=== PATIENT | male | born 1950 | race Caucasian/White ===

== ENCOUNTER → 2023-08-14 | Outpatient (CLI) | payer MEDICARE ==
[2023-08-14 10:06] LABS: Partial Thromboplastin Time 26.9 sec (22.0-30.0)
[2023-08-14 15:11] LABS: HCT 44.7 % (39.6-50.0); HGB 14.4 g/dL (13.0-17.0); MCH 28.3 pg (27.0-32.0); MCHC 32.2 g/dL (32.0-37.0); Mean Platelet Volume 10.2 FL (9.5-12.2); NRBC Per 100 WBC 0 X 10*3/uL (0.00-0.01); Platelet Count 253 X 10*3/uL (140-440); RBC 5.08 X 10*6/uL (4.40-5.60); RDW 14.7 % (11.5-14.5); WBC 9.24 X 10*3/uL (4.50-10.00)
[2023-08-14 15:23] LABS: ALT 15 U/L (10-49); AST 15 U/L (14-35); Albumin 4.1 g/dL (3.8-4.9); Albumin/Globulin Ratio 1.64 Ratio (1.60-3.17); Alkaline Phosphatase 58 U/L (41-126); Blood Urea Nitrogen 11.2 mg/dL (9.0-27.0); Calcium 9.6 mg/dL (8.7-10.3); Carbon Dioxide 27.9 mmol/L (21.6-31.8); Chloride 102 mmol/L (96-109); Globulin 2.5 g/dL (1.6-3.3); Glucose 148 mg/dL (70-110); Sodium 141 mmol/L (135-145); Total Bilirubin 0.6 mg/dL (0.3-1.2); Total Protein 6.6 g/dL (6.2-8.2)
[2023-08-14 16:01] LABS: Appearance,Urine Clear (Clear); Bilirubin,Urine Negative (Negative); Blood,Urine Negative (Negative); Color,Urine Yellow (Yellow); Ketones,Urine Negative (Negative); Nitrite,Urine Negative (Negative); PH, Urine 6.5; Specific Gravity,Urine 1.017 (1.001-1.030)
[2023-08-14 16:20] LABS: Bacteria,Urine None Seen (None Seen)
[2023-08-15 08:53] LABS: Prothrombin Time 10.9 sec (10.0-12.5)
== END | disposition home or self-care (01) ==
LOC: LABPAT 08:16
PROVIDERS: ATTEND Orthopaedic Surgery
DX: Z01.818 Encounter for other preprocedural examination (principal); I49.8 Other specified cardiac arrhythmias; M16.11 Unilateral primary osteoarthritis, right hip; R94.31 Abnormal electrocardiogram [ECG] [EKG]
CPT/HCPCS: 80053; 81001; 85027; 85610; 85730; 86850; 86900; 86901; 87070; 93005

== ENCOUNTER 2023-08-25 05:34 | Inpatient (IN) | payer MEDICARE ==
[2023-08-19 16:50] VITALS: BMI 44.7
[~2023-08-25 05:34] MED LIST: ACETAMINOPHEN TAB 500 MG TAB PO PRN; GABAPENTIN 300 MG CAP PO PRN; MELOXICAM 7.5 MG TAB PO PRN; TRANEXAMIC 1,000 MG/100ML-NACL 1,000 MG in SALINE 1 100ML.BAG IVPB PRN; ceFAZolin 3 GM in SODIUM CHLORIDE 0.9% 100 ML IVPB PRN
[2023-08-25] MEDS ORDERED: ONDANSETRON 4 MG/2 ML VIAL IVP ONE ×2 (05:46→10:03)
[2023-08-25 06:30] LABS: Glucose,Whole Blood 154 mg/dL (70-110)
[2023-08-25] MEDS ORDERED: DEXAMETHASONE SOD PHOSPHATE 4 MG/ML 1 ML VIAL IVP ONE (06:46)
[2023-08-25] MEDS ORDERED: MIDAZOLAM 2 MG/2 ML VIAL IVP ONE (06:48)
[2023-08-25] MEDS: LACTATED RINGERS 1,000 ML IV SCH (06:50)
[2023-08-25] MEDS ORDERED: HYDROmorphone 0.5 MG/0.5 ML SYRINGE IVP PRN ×4 (07:00→09:20)
[2023-08-25] MEDS ORDERED: ceFAZolin 1,000 MG in SODIUM CHLORIDE 0.9% 1,000 ML IRRIGATION ONE (07:00)
[2023-08-25] MEDS ORDERED: ROPIVACAINE 5 MG/ML 30 ML VIAL MISCELLANE ONE ×2 (07:36→08:35)
--- NOTE | 2023-08-25 08:47 | P.OP ---
Date of Procedure: 08/25/23 Preoperative Diagnosis: Severe osteoarthritis right hip Postoperative Diagnosis: Severe osteoarthritis right hip Procedure(s) Performed: Right total hip arthroplasty with a direct anterior approach Implants: [employer] Polarstem standard size 7 [employer] R3, 3 hole hemispherical acetabular shell, 56 mm [employer] Reflection 6.5 mm cancellus screw, 20 mm, 25 mm [employer] R3, XLPE 20 acetabular liner [employer] Oxinium femoral head 36 mm, +8 All components were press-fit. The articulation is Oxinium on polyethylene. Anesthesia: spinal Surgeon: Vladimir Todd Hotel Sales Manager #1: Gladis Gould Estimated Blood Loss (ml): 1,500 Pathology: none sent Condition: stable Disposition: PACU Indications for Procedure: After failure of conservative treatment we discussed the surgical and nonsurgical treatment options at length. Patient wishes to proceed with a total hip arthroplasty with a direct anterior approach. Complications specific to this procedure were discussed at length, including but not limited to infection, leg length discrepancy, dislocation, nerve injury, and fracture. Covid-19 was also discussed at length with the patient, and they are aware of the current policies and procedures. The patient was given the option of delaying surgery, but they elect to proceed knowing these risks. Patient is aware of all these complications and informed consent was obtained Operative Findings: The operative findings are consistent with severe osteoarthritis of the right hip Description of Procedure: The patient was seen and evaluated in the preoperative area and the consent was reviewed. The operative site was marked with a skin marker. The patient verified the procedure and operative site. A ALVERTO block was placed by [facility] in the preoperative area. The patient was then brought to the operating room and given preoperative antibiotics intravenously. 1 g of Tranexamic acid was also given intravenously. A spinal anesthetic was administered by the anesthesia department. The patient was then placed on the [place] table with the bony prominences well-padded. The hip area was then prepped with a ChloraPrep solution and draped in the usual sterile fashion. A universal timeout was then performed, which confirmed the patient's name, surgical site, ALLERGIES, and procedure being performed on the consent. Next the incision site was located at 1 cm distal and 4 cm lateral to the anterior superior iliac spine. The skin and subcutaneous tissues were sharply incised. Incision was carefully dissected down to the fascia overlying the tensor fascia eva muscle. This fascia was then incised in line with the muscle fibers. Care was taken to stay laterally in order to avoid injuring the lateral femoral cutaneous nerve. Next, using blunt finger dissection, the tensor fascia eva muscle was dissected off its investing fascia. The muscle was then carefully retracted laterally with a cobra retractor over the lateral neck of the femur. Next, the circumflex vessels were identified and cauterized using the Aquamantis device. The anterior hip capsule was then exposed. The capsule was then opened and an inverted T fashion. The retractors were then placed intracapsularly. The retractors were maintained intracapsular throughout the procedure. The proximal femur was then visualized. Fluoroscopic x-rays were then taken in order to evaluate the preoperative leg lengths. A small amount of traction was placed on the leg. The femoral neck was then osteotomized at the appropriate level above the lesser trochanter. A small wedge of bone was then removed from the remaining femoral head. Next, using a corkscrew the femoral head was removed from the acetabulum. On gross visual inspection, the femoral head had complete loss of articular cartilage and multiple periarticular osteophytes. The femoral head was then measured. Attention was then turned to the acetabulum. The acetabulum was exposed and any remaining labrum was excised. Sequential reaming of the acetabulum was performed using fluoroscopic guidance until there was a good bed of bleeding cancellus bone. When the appropriate size was reached, a trial was then placed. The position and fit of the trial was checked with fluoroscopy. The trial was then removed. Then, using fluoroscopic guidance, the final implant was impacted at 20 of anteversion and 40 of abduction, and fully seated in the acetabulum. 2 screws were then placed in the acetabulum. Again fluoroscopy was used to check position of the screws. Next, the liner was then impacted, with a 20 elevated liner located in the anterior superior quadrant. Component locking was confirmed. Attention was then directed to the femur. With the aid of the [place] table, the femur was externally rotated to approximately 130, extended, and adducted under the opposite leg. A side hook was then placed under the proximal femur, and the side hook elevator was used to elevate the proximal femur while releasing the capsule. Retractors were then placed. A capsular release was performed, as well as a release of the conjoined tendon, which afforded excellent visualiza tion of the proximal femur. Next, a box osteotome was used to lateralize the proximal femur. A shaper machine hand was then used to locate the femoral canal. Sequential broaching was then performed with appropriate size which afforded excellent fixation in the proximal femur. A trial was then placed with appropriate head and neck, and the hip was gently reduced with the aid of the [place] table. Fluoroscopy was then used to check position of the components, as well as to evaluate the leg lengths and offset. The leg lengths and offset were measured as closely as possible to ensure stability of the hip. The hip was then gently dislocated and the trials were then removed. Final implants were then impacted and the hip was again reduced. Final fluoroscopic x-rays confirmed that the components were in anatomic position. The leg lengths and offset were measured and were found to coincide with the trial measurements. The hip was also taken through range of motion, and found to be stable. The hip was then copiously irrigated with antibiotic solution with pulsatile lavage. The hip was then irrigated with Irrisept solution. The soft tissues were then injected with a ropivacaine solution. A second dose of 1 g of Tranexamic acid was also given intravenously. The fascia was then closed with 2-0 strata fix suture. The subcutaneous tissue was closed with 3-0 Vicryl. The subcuticular tissue was closed with 3-0 strata fix suture. The skin was then closed with Exofin skin glue. After the glue and dried, and Optifoam silver impregnated dressing was applied. The patient was then transferred to the recovery room in stable condition. The household personal assistant DANG Mcintosh was required due to the complexity of surgery, and the need for skilled blood donor unit assistant for positioning, draping, exposure, retraction, and closure of the wound.
[2023-08-25] MEDS ORDERED: PROPOFOL 10 MG/ML 20 ML VIAL IV ONE (08:55)
[2023-08-25] MEDS ORDERED: MIDAZOLAM 2 MG/2 ML VIAL ONE (08:55)
[2023-08-25] MEDS ORDERED: PHENYLEPHRINE-0.9% NACL SYG 1,000 MCG/10 ML SYRINGE ONE (08:55)
[2023-08-25] MEDS ORDERED: fentaNYL (PF) 50 MCG/ML 2 ML AMP ONE (08:55)
[2023-08-25] MEDS ORDERED: TRANEXAMIC 1,000 MG/100ML-NACL PREMIX BAG ONE (08:55)
[2023-08-25] MEDS ORDERED: ALBUMIN HUMAN 5% (12.5gm) 250 ML BOTTLE IVPB ONE (08:55)
[2023-08-25] MEDS ORDERED: LACTATED RINGERS 1,000 ML IV ONE (09:08)
[2023-08-25] MEDS ORDERED: MAGNESIUM HYDROXIDE 2,400 MG/30 ML CUP PO PRN (09:20)
[2023-08-25] MEDS ORDERED: NALOXONE 0.4 MG/ML 1 ML VIAL IV PRN (09:20)
[2023-08-25] MEDS ORDERED: ONDANSETRON 4 MG/2 ML VIAL IVP PRN (09:20)
[2023-08-25 09:53] LABS: HCT 34.1 % (39.0-53.0); HGB 11.8 gm/dL (13.0-17.5); MCH 30.7 pg (25.0-35.0); MCHC 34.6 g/dL (31.0-37.0); MCV 88.6 fL (80.0-100.0); Mean Platelet Volume 8.3; Platelet Count 214 k/uL (150-450); RBC 3.85 m/uL (4.30-5.90); RDW 14.9 % (11.5-15.5); WBC 11.9 k/uL (3.8-10.6)
[2023-08-25 10:08] LABS: Glucose,Whole Blood 190 mg/dL (70-110)
--- NOTE | 2023-08-25 10:08 | XR ---
EXAMINATION TYPE: XR Hip Limited RT DATE OF EXAM: 08/25/2023 Comparison: None Clinical History: 72-year-old male postsurgical anterior right hip replacement, PACU now Findings: Image shows placement of right hip total arthroplasty. The acetabular cup and femoral stem components of the prosthesis appear well seated. No obvious periprosthetic fractures seen. Alignment grossly an atomic. Soft tissue air related to recent operation. Impression: Uncomplicated postoperative appearance right hip total arthroplasty.
[2023-08-25] MEDS: SODIUM CHLORIDE 0.9% 1,000 ML IV SCH ×3 (10:22→23:12)
--- NOTE | 2023-08-25 10:57 | P.ANPRN ---
Procedure Note - Anesthesia - Nerve Block Performed Right Patrick Single Time Out Performed: Yes ([id number]) Date of Procedure: 08/25/23 Procedure Start Time: 06:48 Procedure Stop Time: 06:55 Location of Patient: PreOp Indication: Acute Post-Operative Pain, Requested by Surgeon Specifically requested for management of pain by DrLe: Vladimir Todd Sedation Type: Sedate with meaningful contact maintained Preparation: Sterile Prep Position: Supine Catheter: None Needle Types: Pajunk Needle Gauge: 21 Ultrasound used to visualize needle placement: Yes Ultrasound used to observe medication spread: Yes Injectate: 0.5% Ropivacaine (see comment for volume) (30cc) Blood Aspirated: No Pain Paresthesia on Injection Noted: No Resistance on Injection: Normal Image Stored and Saved: Yes Events: Uneventful and Well Tolerated
--- NOTE | 2023-08-25 11:32 | XR ---
EXAMINATION TYPE: XR Hip Complete RT, FL guidance operating room DATE OF EXAM: 08/25/2023 Comparison: None Clinical History: 72-year-old male RT ANTERIOR HIP Findings: Images show placement of right total hip arthroplasty. 1.22min fluoro time 10.[address] Todd 3 images submitted. Impression: Intraoperative fluoroscopy as above.
[2023-08-25] MEDS ORDERED: FUROSEMIDE 20 MG TAB PO PRN (14:34)
[2023-08-25] MEDS: lisinopriL 20 MG TAB PO SCH (14:57)
[2023-08-25] MEDS: HYDROcodone/APAP 7.5-325MG 1 EACH TAB PO PRN ×2 (14:58→20:59)
[2023-08-25] MEDS: ceFAZolin 3 GM in SODIUM CHLORIDE 0.9% 100 ML IVPB SCH ×2 (14:58→23:13)
[2023-08-25] MEDS: GABAPENTIN 300 MG CAP PO SCH ×3 (14:59→20:59)
[2023-08-25] MEDS ORDERED: DEXTROSE 50% SYRINGE 50 ML IVP PRN ×2 (15:07)
--- NOTE | 2023-08-25 15:09 | P.CONS ---
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 He is currently admitted and orthopedic surgery team status post elective right total hip arthroplasty secondary to severe osteoarthritis of right hip. We have been consulted for medical management throughout patient's hospitalization. Patient seen and fully evaluated at bedside. He currently reports controlled postoperative pain. He reports urinating without difficulty in postoperative period. Patient tolerating oral intake and denies having any postoperative nausea or vomiting. Patient also denies any other complaints at this time including headache, lightheadedness, dizziness, chest pain, palpitations, or shortness of breath. Review of systems: Pertinent positives and negatives as discussed in HPI, a complete review of systems was performed and all other systems are negative. Physical exam: Vital signs reviewed and stable. General: Nontoxic, no distress and appears stated age. Derm: Skin warm and dry, normal coloration for ethnicity. Postoperative dressing and ice pack in place bilateral hip/thigh. Head: Atraumatic, normocephalic and symmetric. Eyes: EOMs intact, no lid lag, and anicteric sclera Mouth: no lip lesions, mucus membranes moist Cardiovascular: regular rate and rhythm with normal S1S2, no murmur, positive posterior tibial pulses bilaterally, and cap refill < 2 seconds. Lungs: Respirations even, regular, and unlabored on room air. Lungs CTA bilaterally, no rhonchi, no rales, no wheezing, and no accessory muscle usage. Abdominal: soft, nontender to palpation, no guarding, no appreciable organomegaly Ext: No gross muscle atrophy, no edema, no contractures left upper extremity amputation.. movement and sensation intact in right upper and bilateral lower extremities. Neuro: Speech clear, face symmetrical and CN II-XII grossly intact with no noted focal neuro deficits Psych: Alert and oriented to person, place, time, and situation. Appropriate and pleasant affect. Assessment and Plan of Care: Status post right total hip arthroplasty Management per primary admitting orthopedic surgery team including DVT prophylaxis, pain management, wound/dressing care, weightbearing, and PT/OT. Mku-rhkxdcn-yfcvtpdvo diabetes mellitus with hyperglycemia -Glucose 190. Hold glimepiride and metformin in place patient on glycemic pablito col with NovoLog sliding scale. Hypertension Continue daily medication regimen with amlodipine 10 mg nightly, hydralazine 50 mg twice daily, and lisinopril 40 mg daily. Hyperlipidemia Continue daily medication regimen with atorvastatin 80 mg nightly. Neuropathy status post left upper extremity amputation Continue Neurontin 300 mg 4 times daily. Obstructive sleep apnea Order placed for CPAP nightly and while napping. Data reviewed Preoperative labs reviewed. CBC showing Preoperative hemoglobin 11.8. Vital signs reviewed. Blood pressure 146/73, heart rate 79, respiratory rate 19, temperature 97.4F, SpO2 95% on room air. Thank you for allowing us to participate in the care of this pleasant patient. Do not hesitate to contact us with questions. Someone can be reached from the [facility] hospitalist group all hours of the day at [phone] or via [employer] serve. Patient was seen independently by Nurse Practitioner. This document was prepared using [employer] dictation software. Please allow for errors in corn lab technician while rare they do occur. 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 Hx 3 polyps taken out of upper lung lobe 2020. Acid Reflux currently resolved. Bilateral hearing aid use. CPAP use. History of Any Multi-Drug Resistant Organisms: None Reported Past Surgical History: Ear Surgery Additional Past Surgical History / Comment(s): Surgical biospy with removal of 3 polyps from upper lobe of lung, left arm amputation, attempted ear surgery - unsuccessful, "drains put in eardrums", colonoscopy., trh 08/25/2023 Past Anesthesia/Blood Transfusion Reactions: No Reported Reaction, Motion Sickness Additional Past Anesthesia/Blood Transfusion Reaction / Comm: Hx motion sickness as a child. Smoking Status: Former smoker - Past Family History Sister(s) Family Medical History: Cancer Additional Family Medical History / Comment(s): Breast cancer, leiomyosarcoma in uterus/connective tissue. Other sister had cancer also. Medications and Allergies Home Medications Medication Instructions Recorded Confirmed Type Aspirin [Adult Low Dose Aspirin EC] 4 tab PO 1500 08/19/23 08/25/23 History Furosemide [Lasix] 20 mg PO DAILY PRN 08/19/23 08/25/23 History Gabapentin 300 mg PO QID 08/19/23 08/25/23 History Glimepiride 4 mg PO 1500 08/19/23 08/25/23 History Glucosam/Jose-Msm1/C/Palomo/Bosw 1 each PO BID 08/19/23 08/25/23 History [Glucosamine-Chondroitin Tablet] Krill Oil (Unknown Dose) 1 tab PO Q48H 08/19/23 08/25/23 History Magnesium (Unknown Dose) 1 tab PO DAILY 08/19/23 08/25/23 History Multivitamins, Thera [Multivitamin 1 tab PO QAM 08/19/23 08/25/23 History (formulary)] [place] 3 (Unknown Dose) 1 tab PO Q48H 08/19/23 08/25/23 History Potassium Chloride [K-Tab ER] 20 meq PO QAM 08/19/23 08/25/23 History Rosuvastatin Calcium 40 mg PO 0000 08/19/23 08/25/23 History Ubidecarenone [Co Q-10] 400 mg PO DAILY 08/19/23 08/25/23 History Vitamin B Complex 1 each PO Q48H 08/19/23 08/25/23 History Vitamin D3 (Unknown Dose) 1 tab PO Q48H 08/19/23 08/25/23 History amLODIPine 10 mg PO HS 08/19/23 08/25/23 History hydrALAZINE HCL 50 mg PO BID 08/19/23 08/25/23 History lisinopriL 40 mg PO 1500 08/19/23 08/25/23 History metFORMIN HCL 1,000 mg PO AC-BID 08/19/23 08/25/23 History Aspirin 325 mg PO BID #60 tab 08/25/23 Rx HYDROcodone/APAP 7.5-325MG [[place] 1 - 2 tab PO Q6H PRN #32 tab 08/25/23 Rx 7.5-325] Sennosides [Senokot] 2 tab PO DAILY PRN #60 tablet 08/25/23 Rx Allergies Allergy/AdvReac Type Severity Reaction Status Date / Time Penicillins Allergy Peeling Verified 08/25/23 06:00 skin Physical Exam Vitals: Vital Signs Temp Pulse Pulse Pulse Resp BP BP 08/25/23 13:00 68 16 135/69 08/25/23 12:00 67 16 140/69 08/25/23 11:30 66 16 146/75 08/25/23 11:00 57 L 16 146/57 08/25/23 10:51 62 16 130/57 08/25/23 10:36 58 L 16 124/58 08/25/23 10:21 52 L 16 101/48 08/25/23 10:06 48 L 16 135/61 08/25/23 09:51 68 16 134/63 08/25/23 09:36 67 16 111/53 08/25/23 09:21 61 16 130/63 08/25/23 09:06 97.3 F L 73 14 114/53 08/25/23 06:56 74 16 154/67 08/25/23 06:00 98.3 F 86 17 178/79 Pulse Ox 08/25/23 13:00 97 08/25/23 12:00 97 08/25/23 11:30 95 08/25/23 11:00 95 08/25/23 10:51 96 08/25/23 10:36 95 08/25/23 10:21 94 L 08/25/23 10:06 88 L 08/25/23 09:51 92 L 08/25/23 09:36 99 08/25/23 09:21 100 08/25/23 09:06 99 08/25/23 06:56 96 08/25/23 06:00 96 Intake and Output 08/25/23 08/25/23 08/25/23 06:59 14:59 22:59 Intake Total 100 801 Output Total 1500 Balance 100 -699 Intake: IV 100 801 Output: Estimated Blood Loss 1500 Other: Weight 148.6 kg 148.6 kg Results CBC & Chem 7: 08/25/23 08:54 Labs: Abnormal Lab Results - Last 24 Hours (Table) 08/25/23 08/25/23 08/25/23 Range/Units 06:29 08:54 10:06 WBC 11.9 H (3.8-10.6) k/uL RBC 3.85 L (4.30-5.90) m/uL Hgb 11.8 L (13.0-17.5) gm/dL Hct 34.1 L (39.0-53.0) % POC Glucose (mg/dL) 154 H 190 H (70-110) mg/dL
[2023-08-25 17:21] LABS: Glucose,Whole Blood 256 mg/dL (70-110)
[2023-08-25] MEDS: INSULIN ASPART (NovoLOG) 100 UNIT/ML VIAL SQ SCH ×2 (17:35→20:56)
[2023-08-25 20:32] LABS: Glucose,Whole Blood 197 mg/dL (70-110)
[2023-08-25] MEDS: amLODIPine 10 MG TAB PO SCH (20:56)
[2023-08-25] MEDS: SENNOSIDES-DOCUSATE SODIUM 1 EACH TAB PO SCH (20:56)
[2023-08-25] MEDS: hydrALAZINE HCL 50 MG TAB PO SCH (20:56)
[2023-08-25] MEDS: ASPIRIN 325 MG TAB PO SCH (20:57)
[2023-08-25] MEDS: ATORVASTATIN 80 MG TAB PO SCH (23:12)
[2023-08-26] MEDS: HYDROcodone/APAP 7.5-325MG 1 EACH TAB PO PRN ×4 (03:20→20:45)
[2023-08-26 06:12] LABS: Glucose,Whole Blood 134 mg/dL (70-110)
[2023-08-26] MEDS: LACTATED RINGERS 1,000 ML IV SCH (06:12)
[2023-08-26] MEDS: INSULIN ASPART (NovoLOG) 100 UNIT/ML VIAL SQ SCH ×4 (06:46→20:44)
[2023-08-26] MEDS ORDERED: NON FORMULARY DRUG (Ubidecarenone [Co Q-10] 400 MG Capsule) PO SCH (09:00)
[2023-08-26] MEDS: hydrALAZINE HCL 50 MG TAB PO SCH ×2 (09:06→20:43)
[2023-08-26] MEDS: GABAPENTIN 300 MG CAP PO SCH ×4 (09:06→20:43)
[2023-08-26] MEDS: ASPIRIN 325 MG TAB PO SCH ×2 (09:06→20:43)
--- NOTE | 2023-08-26 09:52 | P.PN ---
Subjective Progress Note Date: 08/26/23 This is a 72-year-old female who is status post right total hip arthroplasty. This is postoperative day #1 and patient is seen and evaluated at bedside with Dr. Vladimir Todd. Patient states that his pain is well-controlled he denies any new complaints today. Objective - Vital Signs Vital signs: Vital Signs Temp 99.3 F 08/26/23 07:49 Pulse 72 08/26/23 07:49 Resp 20 08/26/23 07:49 BP 122/73 08/26/23 07:49 Pulse Ox 95 08/26/23 07:49 FiO2 Intake & Output 08/25/23 08/26/23 08/26/23 18:59 06:59 18:59 Intake Total 801 700 Output Total 2200 Balance -1399 700 Weight 148.6 kg Intake: IV 801 Intake, IV Titration 340 Amount Lactated Ringers 1,000 ml 240 @ 20 mls/hr IV .Q24H JAZLYN Rx#:[id number] ceFAZolin 3 gm In Sodium 100 Chloride 0.9% 100 ml @ 200 mls/hr IVPB Q8H JAZLYN Rx#:[id number] Oral 360 Output: Urine 700 Estimated Blood Loss 1500 - Exam Vital signs are stable. Patient is in no acute distress and is alert and oriented 3. Calf is soft and nontender to palpation. Dressing is clean, dry, and intact. Patient has full foot and ankle motion without pain or difficulty. Sensation intact. Neurovascular status and circulatory status are intact. - Labs CBC & Chem 7: 08/25/23 08:54 Labs: Abnormal Lab Results - Last 24 Hours (Table) 08/25/23 08/25/23 08/25/23 Range/Units 08:54 10:06 17:20 WBC 11.9 H (3.8-10.6) k/uL RBC 3.85 L (4.30-5.90) m/uL Hgb 11.8 L (13.0-17.5) gm/dL Hct 34.1 L (39.0-53.0) % POC Glucose (mg/dL) 190 H 256 H (70-110) mg/dL 08/25/23 08/26/23 Range/Units 20:30 06:11 WBC (3.8-10.6) k/uL RBC (4.30-5.90) m/uL Hgb (13.0-17.5) gm/dL Hct (39.0-53.0) % POC Glucose (mg/dL) 197 H 134 H (70-110) mg/dL Assessment and Plan (1) Osteoarthritis of right hip Current Visit: Yes Status: Acute Code(s): M16.11 - UNILATERAL PRIMARY OSTEOARTHRITIS, RIGHT HIP SNOMED Code(s): 687802390911215 (2) S/P total hip arthroplasty Current Visit: Yes Status: Acute Code(s): Z96.649 - PRESENCE OF UNSPECIFIED ARTIFICIAL HIP JOINT SNOMED Code(s): 842392337640 Plan: Continue routine postop care and pain control. Continue anticoagulation. Weightbearing as tolerated with a walker. Leave dressing in place for 7 days. Appreciate input from internal medicine. Anticipate discharge to [facility] in the next 24-48 hours.
[2023-08-26 10:50] LABS: Basophils # (A) 0.03 X 10*3/uL (0.00-0.10); Basophils % (A) 0.3 %; Eosinophils # (A) 0.04 X 10*3/uL (0.04-0.35); Eosinophils % (A) 0.4 %; HCT 29.3 % (39.6-50.0); HGB 9.6 g/dL (13.0-17.0); Lymphocytes # (A) 1.74 X 10*3/uL (0.90-5.00); Lymphocytes % (A) 18.4 %; MCH 29.3 pg (27.0-32.0); MCHC 32.8 g/dL (32.0-37.0); MCV 89.3 FL (80.0-97.0); Mean Platelet Volume 9.7 FL (9.5-12.2); Monocytes # (A) 1.01 X 10*3/uL (0.20-1.00); Monocytes % (A) 10.7 %; NRBC Per 100 WBC 0 X 10*3/uL (0.00-0.01); Neutrophils # (A) 6.59 X 10*3/uL (1.80-7.70); Neutrophils % (A) 69.5 %; Platelet Count 193 X 10*3/uL (140-440); RBC 3.28 X 10*6/uL (4.40-5.60); RDW 14.9 % (11.5-14.5); WBC 9.48 X 10*3/uL (4.50-10.00)
[2023-08-26 10:56] LABS: Glucose,Whole Blood 239 mg/dL (70-110)
[2023-08-26 10:58] LABS: ALT 12 U/L (10-49); AST 20 U/L (14-35); Albumin 3.6 g/dL (3.8-4.9); Alkaline Phosphatase 36 U/L (41-126); BUN/Creat Ratio 22.56 Ratio (12.00-20.00); Blood Urea Nitrogen 20.3 mg/dL (9.0-27.0); Calcium 8.9 mg/dL (8.7-10.3); Carbon Dioxide 26.1 mmol/L (21.6-31.8); Chloride 106 mmol/L (96-109); Globulin 1.8 g/dL (1.6-3.3); Glucose 110 mg/dL (70-110); Magnesium 1.4 mg/dL (1.5-2.4); Potassium 3.6 mmol/L (3.5-5.5); Sodium 143 mmol/L (135-145); Total Bilirubin 0.4 mg/dL (0.3-1.2); Total Protein 5.4 g/dL (6.2-8.2)
--- NOTE | 2023-08-26 14:56 | P.PN ---
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 He is currently admitted and orthopedic surgery team status post elective right total hip arthroplasty completed 08/25/[address] Todd secondary to severe osteoarthritis of right hip. We were consulted for medical management throughout patient's hospitalization. Physical exam: Patient seen and fully evaluated at bedside this morning. He was sitting up in the chair and appeared to be doing well. He is postoperative day one and reports pain is currently controlled with current pain medication regimen and denies any other complaints at this time. Vital signs reviewed and stable. General: Nontoxic, no distress and appears stated age. Derm: Skin warm and dry, normal coloration for ethnicity. Postoperative dressing and ice pack in place bilateral hip/thigh. Head: Atraumatic, normocephalic and symmetric. Eyes: EOMs intact, no lid lag, and anicteric sclera Mouth: no lip lesions, mucus membranes moist Cardiovascular: regular rate and rhythm with normal S1S2, no murmur, positive posterior tibial pulses bilaterally, and cap refill < 2 seconds. Lungs: Respirations even, regular, and unlabored on room air. Lungs CTA bilaterally, no rhonchi, no rales, no wheezing, and no accessory muscle usage. Abdominal: soft, nontender to palpation, no guarding, no appreciable organomega ly Ext: No gross muscle atrophy, no edema, no contractures left upper extremity amputation.. movement and sensation intact in right upper and bilateral lower extremities. Neuro: Speech clear, face symmetrical and CN II-XII grossly intact with no noted focal neuro deficits Psych: Alert and oriented to person, place, time, and situation. Appropriate and pleasant affect. Assessment and Plan of Care: Acute postoperative blood loss anemia Preoperative hemoglobin 11.8 with postoperative hemoglobin of 9.6, this is an expected and stable finding. No need for transfusion or further intervention at this time as there is no signs of active bleeding. Hypomagnesemia Magnesium 1.4, orders placed for magnesium sulfate 3 g IVPB 1 dose. Status post right total hip arthroplasty Management per primary admitting orthopedic surgery team including DVT prophylaxis, pain management, wound/dressing care, weightbearing, and PT/OT. Txn-xxhgpes-hvfjoldee diabetes mellitus with hyperglycemia -Hemoglobin A1c 6.4%.. Hold glimepiride and metformin in place patient on glycemic protocol with NovoLog sliding scale. Hypertension Continue daily medication regimen with amlodipine 10 mg nightly, hydralazine 50 mg twice daily, and lisinopril 40 mg daily. Hyperlipidemia Continue daily medication regimen with atorvastatin 80 mg nightly. Neuropathy status post left upper extremity amputation Continue Neurontin 300 mg 4 times daily. Obstructive sleep apnea Order placed for CPAP nightly and while napping. Data reviewed Postoperative labs reviewed. Preoperative hemoglobin 11.8 with postoperative hemoglobin of 9.6. BMP unremarkable. Hemoglobin A1c elevated at 6.4%. Magnesium low at 1.4. Vital signs reviewed. Blood pressure 122/73, heart rate 72, respiratory rate 20, temp 99.3F, SpO2 95% on room air. Tentative plan per orthopedic surgery is for patient to be discharged to senior care facility, per patient's Medicare he is not eligible for discharge to rehab until Thursday08/28/23. Thank you for allowing us to participate in the care of this pleasant patient. Do not hesitate to contact us with questions. Someone can be reached from the [facility] hospitalist group all hours of the day at [phone] or via [employer]. Patient was seen independently by Nurse Practitioner. This document was prepared using [employer] dictation software. Please allow for errors in unit operator while rare they do occur. Fernando Turner NP rendered care for this patient independently, reviewed the findings and plan as documented in the note above. I did not physically speak with or examine the patient on this date. Objective - Vital Signs Vital signs: Vital Signs Temp 97.4 F L 08/26/23 02:38 Pulse 63 08/26/23 02:38 Resp 17 08/26/23 02:38 BP 128/63 08/26/23 02:38 Pulse Ox 95 08/25/23 14:09 FiO2 Intake & Output 08/25/23 08/26/23 08/26/23 18:59 06:59 18:59 Intake Total 801 700 Output Total 2200 Balance -1399 700 Weight 148.6 kg Intake: IV 801 Intake, IV Titration 340 Amount Lactated Ringers 1,000 ml 240 @ 20 mls/hr IV .Q24H [facility] Rx#:[id number] ceFAZolin 3 gm In Sodium 100 Chloride 0.9% 100 ml @ 200 mls/hr IVPB Q8H [facility] Rx#:[id number] Oral 360 Output: Urine 700 Estimated Blood Loss 1500 - Labs CBC & Chem 7: 08/26/23 07:20 08/26/23 07:20 Labs: Abnormal Lab Results - Last 24 Hours (Table) 08/25/23 08/25/23 08/25/23 Range/Units 08:54 10:06 17:20 WBC 11.9 H (3.8-10.6) k/uL RBC 3.85 L (4.30-5.90) m/uL Hgb 11.8 L (13.0-17.5) gm/dL Hct 34.1 L (39.0-53.0) % POC Glucose (mg/dL) 190 H 256 H (70-110) mg/dL 08/25/23 08/26/23 Range/Units 20:30 06:11 WBC (3.8-10.6) k/uL RBC (4.30-5.90) m/uL Hgb (13.0-17.5) gm/dL Hct (39.0-53.0) % POC Glucose (mg/dL) 197 H 134 H (70-110) mg/dL
[2023-08-26] MEDS: lisinopriL 20 MG TAB PO SCH (15:11)
[2023-08-26] MEDS: MAGNESIUM SULFATE-D5W PMX 1 GM in DEXTROSE/WATER 1 100ML.BAG IVPB SCH ×3 (15:12→17:40)
[2023-08-26] MEDS: SODIUM CHLORIDE 0.9% 1,000 ML IV SCH (15:14)
[2023-08-26 16:34] LABS: Glucose,Whole Blood 153 mg/dL (70-110)
[2023-08-26] MEDS: amLODIPine 10 MG TAB PO SCH (20:43)
[2023-08-26] MEDS: SENNOSIDES-DOCUSATE SODIUM 1 EACH TAB PO SCH (20:43)
[2023-08-26 21:15] LABS: Glucose,Whole Blood 174 mg/dL (70-110)
[2023-08-26] MEDS: ATORVASTATIN 80 MG TAB PO SCH (23:41)
[2023-08-27] MEDS: SODIUM CHLORIDE 0.9% 1,000 ML IV SCH (04:35)
[2023-08-27] MEDS: HYDROcodone/APAP 7.5-325MG 1 EACH TAB PO PRN ×3 (04:37→17:30)
[2023-08-27] MEDS: LACTATED RINGERS 1,000 ML IV SCH (05:38)
[2023-08-27 06:03] LABS: Glucose,Whole Blood 139 mg/dL (70-110)
[2023-08-27] MEDS: INSULIN ASPART (NovoLOG) 100 UNIT/ML VIAL SQ SCH ×4 (06:04→21:33)
[2023-08-27 06:44] LABS: HCT 29.5 % (39.0-53.0); MCH 28.8 pg (25.0-35.0); MCHC 32.3 g/dL (31.0-37.0); MCV 89.2 fL (80.0-100.0); Platelet Count 173 k/uL (150-450); RBC 3.31 m/uL (4.30-5.90); RDW 14.6 % (11.5-15.5); WBC 9.7 k/uL (3.8-10.6)
[2023-08-27 06:51] LABS: HGB 9.5 gm/dL (13.0-17.5)
[2023-08-27 06:52] LABS: African American GFR (CKD) >90 (>60 ml/min/1.73 sqM); Anion Gap 10 mmol/L; Blood Urea Nitrogen 23 mg/dL (9-20); Calcium 8.5 mg/dL (8.4-10.2); Carbon Dioxide 26 mmol/L (22-30); Chloride 99 mmol/L (98-107); Glucose 135 mg/dL (74-99); Non-African American GFR(CKD) >90 (>60 ml/min/1.73 sqM); Potassium 3.4 mmol/L (3.5-5.1); Sodium 135 mmol/L (137-145)
[2023-08-27] MEDS: hydrALAZINE HCL 50 MG TAB PO SCH ×2 (09:02→21:33)
[2023-08-27] MEDS: ASPIRIN 325 MG TAB PO SCH ×2 (09:02→21:32)
[2023-08-27] MEDS: GABAPENTIN 300 MG CAP PO SCH ×4 (09:02→21:33)
[2023-08-27] MEDS ORDERED: POTASSIUM CHLORIDE ER 20 MEQ TAB.ER PO STA (10:10)
[2023-08-27 11:10] LABS: Glucose,Whole Blood 214 mg/dL (70-110)
--- NOTE | 2023-08-27 11:14 | P.PN ---
Subjective Progress Note Date: 08/27/23 This is a 72-year-old female who is status post right total hip arthroplasty. This is postoperative day #2 and patient is seen and evaluated at bedside with Dr. Vladimir Todd. Patient states that his pain is well-controlled he denies any new complaints today. Objective - Vital Signs Vital signs: Vital Signs Temp 98.5 F 08/27/23 08:00 Pulse 62 08/27/23 08:00 Resp 16 08/27/23 10:41 BP 130/70 08/27/23 08:00 Pulse Ox 98 08/27/23 08:00 FiO2 Intake & Output 08/26/23 08/27/23 08/27/23 18:59 06:59 18:59 Output Total 300 Balance -300 Output: Urine 300 Other: Voiding Method Toilet Toilet # Voids 2 1 1 - Exam Vital signs are stable. Patient is in no acute distress and is alert and oriented 3. Calf is soft and nontender to palpation. Wound vac is clean, dry, and intact. Patient has full foot and ankle motion without pain or difficulty. Sensation intact. Neurovascular status and circulatory status are intact. - Labs CBC & Chem 7: 08/27/23 06:08 08/27/23 06:08 Labs: Abnormal Lab Results - Last 24 Hours (Table) 08/26/23 08/26/23 08/27/23 Range/Units 16:33 21:14 06:03 RBC (4.30-5.90) m/uL Hgb (13.0-17.5) gm/dL Hct (39.0-53.0) % Sodium (137-145) mmol/L Potassium (3.5-5.1) mmol/L BUN (9-20) mg/dL Glucose (74-99) mg/dL POC Glucose (mg/dL) 153 H 174 H 139 H (70-110) mg/dL 08/27/23 08/27/23 08/27/23 Range/Units 06:08 06:08 11:09 RBC 3.31 L (4.30-5.90) m/uL Hgb 9.5 L D (13.0-17.5) gm/dL Hct 29.5 L (39.0-53.0) % Sodium 135 L (137-145) mmol/L Potassium 3.4 L (3.5-5.1) mmol/L BUN 23 H (9-20) mg/dL Glucose 135 H (74-99) mg/dL POC Glucose (mg/dL) 214 H (70-110) mg/dL Assessment and Plan (1) Osteoarthritis of right hip Current Visit: Yes Status: Acute Code(s): M16.11 - UNILATERAL PRIMARY OSTEOARTHRITIS, RIGHT HIP SNOMED Code(s): 942352179513134 (2) S/P total hip arthroplasty Current Visit: Yes Status: Acute Code(s): Z96.649 - PRESENCE OF UNSPECIFIED ARTIFICIAL HIP JOINT SNOMED Code(s): 228889965338 Plan: Continue routine postop care and pain control. Continue anticoagulation. Weightbearing as tolerated with a walker. Leave Prevena wound vac in place for 7 days. Appreciate input from internal medicine. Anticipate discharge to ECF in the next 24-48 hours.
[2023-08-27] MEDS: FERROUS SULFATE 325 MG TAB PO SCH (11:47)
[2023-08-27] MEDS: metFORMIN 500 MG TAB PO SCH ×2 (11:47→17:31)
[2023-08-27] MEDS: lisinopriL 20 MG TAB PO SCH (15:50)
[2023-08-27 16:52] LABS: Glucose,Whole Blood 177 mg/dL (70-110)
--- NOTE | 2023-08-27 17:04 | P.PN ---
Subjective Progress Note Date: 08/27/23 Patient is a 72-year-old male with hypertension, dyslipidemia, diabetes mellitus type 2, leiomyosarcoma status post left upper extremity amputation, and multiple other comorbid conditions who presented for elective right total hip arthroplasty. Patient seen and examined at bedside. He continues to have some pain. No significant difference in his breathing. No other complaints currently. Vital signs reviewed General: [nontoxic], [no distress], [appears at stated age] Cardiovascular: [S1S2 reg], [no murmur], [positive posterior tibial pulse bilateral], Lungs: [CTA bilateral], [no rhonchi, no rales] , [no accessory muscle use] Abdominal: [soft], [ nontender to palpation], [no guarding], [no appreciable organomegaly] Ext: [no gross muscle atrophy], [no edema b/l lower extremities], [no contractures] Neuro: [ CN II-XI grossly intact], [no focal neuro deficits] Psych: [Alert], [oriented], [appropriate affect] Assessment/Plan: 72-year-old male status post right total hip arthroplasty -Ortho note reviewed: Leave Provana wound VAC in place for 7 days, continue anticoagulation. Acute postoperative blood loss anemia, anticipated outcome of surgery - ferrous sulfate 325 mg PO daily for the next 30 days Hypomagnesemia, resolved Hypokalemia -Potassium 20 mEq p.o. x 1 Diabetes Melitus type II, with hyperglycemia -Hemoglobin A1c 6.4%.. -Hold glimepiride -Resume metformin 1000 mg twice daily -SSI Hypertension - amlodipine 10 mg nightly, hydralazine 50 mg twice daily, and lisinopril 40 mg daily. Hyperlipidemia -Atorvastatin 80 mg nightly. Neuropathy status post left upper extremity amputation - Neurontin 300 mg 4 times daily. Obstructive sleep apnea -CPAP nightly Class III obesity with BMI 44.4 -Outpatient structured weight loss Imaging: None new Data Review: Labs reviewed from today include CBC and basic metabolic profile which are remarkable for hemoglobin 9.5, sodium 135, potassium 3.4, BUN 24, blood sugar 139 Thank you for allowing us to participate in the care of this pleasant patient. Do not hesitate to contact us with questions. Someone can be reached from the [facility] hospitalist group all hours of the day at [phone] or via perfect serve. This dictation was prepared using [employer] voice recognition software. Though every attempt is made to correct errors during dictation some may still exist. Objective - Vital Signs Vital signs: Vital Signs Temp 97.8 F 08/27/23 01:36 Pulse 69 08/27/23 01:36 Resp 20 08/27/23 01:36 BP 130/66 08/27/23 01:36 Pulse Ox 96 08/27/23 01:36 FiO2 Intake & Output 08/26/23 08/27/23 08/27/23 18:59 06:59 18:59 Other: Voiding Method Toilet # Voids 2 1 - Labs CBC & Chem 7: 08/27/23 06:08 08/27/23 06:08 Labs: Abnormal Lab Results - Last 24 Hours (Table) 08/26/23 08/26/23 08/26/23 Range/Units 07:20 07:20 07:20 RBC 3.28 L (4.40-5.60) X 10*6/uL Hgb 9.6 L (13.0-17.0) g/dL Hct 29.3 L (39.6-50.0) % RDW 14.9 H (11.5-14.5) % Immature Gran # 0.07 H (0.00-0.04) X 10*3/uL Monocytes # 1.01 H (0.20-1.00) X 10*3/uL Sodium (137-145) mmol/L Potassium (3.5-5.1) mmol/L BUN (9-20) mg/dL BUN/Creatinine Ratio 22.56 H (12.00-20.00) Ratio Glucose (74-99) mg/dL POC Glucose (mg/dL) (70-110) mg/dL Hemoglobin A1c 6.4 H (<=6.0) % Magnesium 1.4 L (1.5-2.4) mg/dL Alkaline Phosphatase 36 L (41-126) U/L Total Protein 5.4 L (6.2-8.2) g/dL Albumin 3.6 L (3.8-4.9) g/dL 08/26/23 08/26/23 08/26/23 Range/Units 10:55 16:33 21:14 RBC (4.40-5.60) X 10*6/uL Hgb (13.0-17.0) g/dL Hct (39.6-50.0) % RDW (11.5-14.5) % Immature Gran # (0.00-0.04) X 10*3/uL Monocytes # (0.20-1.00) X 10*3/uL Sodium (137-145) mmol/L Potassium (3.5-5.1) mmol/L BUN (9-20) mg/dL BUN/Creatinine Ratio (12.00-20.00) Ratio Glucose (74-99) mg/dL POC Glucose (mg/dL) 239 H 153 H 174 H (70-110) mg/dL Hemoglobin A1c (<=6.0) % Magnesium (1.5-2.4) mg/dL Alkaline Phosphatase (41-126) U/L Total Protein (6.2-8.2) g/dL Albumin (3.8-4.9) g/dL 08/27/23 08/27/23 08/27/23 Range/Units 06:03 06:08 06:08 RBC 3.31 L (4.40-5.60) X 10*6/uL Hgb 9.5 L D (13.0-17.0) g/dL Hct 29.5 L (39.6-50.0) % RDW (11.5-14.5) % Immature Gran # (0.00-0.04) X 10*3/uL Monocytes # (0.20-1.00) X 10*3/uL Sodium 135 L (137-145) mmol/L Potassium 3.4 L (3.5-5.1) mmol/L BUN 23 H (9-20) mg/dL BUN/Creatinine Ratio (12.00-20.00) Ratio Glucose 135 H (74-99) mg/dL POC Glucose (mg/dL) 139 H (70-110) mg/dL Hemoglobin A1c (<=6.0) % Magnesium (1.5-2.4) mg/dL Alkaline Phosphatase (41-126) U/L Total Protein (6.2-8.2) g/dL Albumin (3.8-4.9) g/dL
[2023-08-27 20:34] LABS: Glucose,Whole Blood 165 mg/dL (70-110)
[2023-08-27] MEDS: SENNOSIDES-DOCUSATE SODIUM 1 EACH TAB PO SCH (21:32)
[2023-08-27] MEDS: amLODIPine 10 MG TAB PO SCH (21:33)
[2023-08-28] MEDS: ATORVASTATIN 80 MG TAB PO SCH
[2023-08-28 06:27] LABS: Glucose,Whole Blood 174 mg/dL (70-110)
[2023-08-28] MEDS: INSULIN ASPART (NovoLOG) 100 UNIT/ML VIAL SQ SCH ×2 (06:30→13:32)
[2023-08-28] MEDS: metFORMIN 500 MG TAB PO SCH (06:30)
[2023-08-28] MEDS: HYDROcodone/APAP 7.5-325MG 1 EACH TAB PO PRN ×3 (06:31→09:55)
[2023-08-28] MEDS: LACTATED RINGERS 1,000 ML IV SCH (07:44)
[2023-08-28 08:39] VITALS: TEMP 98.4
[2023-08-28] MEDS ORDERED: FENOFIBRATE 160 MG TAB PO SCH (09:00)
[2023-08-28] MEDS: GABAPENTIN 300 MG CAP PO SCH ×2 (09:21→13:32)
[2023-08-28] MEDS: hydrALAZINE HCL 50 MG TAB PO SCH (09:21)
[2023-08-28] MEDS: ASPIRIN 325 MG TAB PO SCH (09:21)
--- NOTE | 2023-08-28 09:51 | P.DS ---
Providers Date of admission: 08/25/23 09:20 Expected date of discharge: 08/28/23 Attending physician: Vladimir Todd Consults: 08/25/23 09:20 Consult Physician Routine Consulting Provider: Prema Reyes Consult Reason/Comments: medical management Do you want consulting provider notified?: Yes Primary care physician: Ivan Arriaga - Discharge Diagnosis(es) (1) Osteoarthritis of right hip Current Visit: Yes Status: Acute (2) S/P total hip arthroplasty Current Visit: Yes Status: Acute Hospital Course: This is a 72-year-old male with known history of degenerative arthritis of the right hip. The patient presents for evaluation. After discussion and consideration patient elects to proceed with total hip arthroplasty with direct anterior approach. The patient is seen preoperatively by primary care physician and cleared for surgery. Patient is admitted to [facility] on 08/25/2023 for total hip arthroplasty with direct anterior approach. The procedure is performed without complication or sequelae. The patient is doing well postoperatively. Labs and vital signs are stable on day of discharge. On day of discharge patient's hip incision is healing well. There is minimal erythema. There is no drainage noted at this time. There is minimal soft tissue swelling to the hip and thigh. Patient has full foot and ankle motion without difficulty or pain. Neurovascular status to the lower extremity is intact. Patient is discharged to patient rehab in good condition. Please see med rec for accurate list of home medications. Patient Condition at Discharge: Good Plan - Discharge Summary Discharge Rx Participant: No New Discharge Prescriptions: New Aspirin 325 mg PO BID #60 tab HYDROcodone/APAP 7.5-325MG [[place] 7.5-325] 1 - 2 tab PO Q6H PRN #32 tab PRN Reason: Pain Sennosides [Senokot] 2 tab PO DAILY PRN #60 tablet PRN Reason: Constipation Continue Ubidecarenone [Co Q-10] 400 mg PO DAILY Glimepiride 4 mg PO 1500 Furosemide [Lasix] 20 mg PO DAILY PRN PRN Reason: Swelling hydrALAZINE HCL 50 mg PO BID amLODIPine 10 mg PO HS Vitamin B Complex 1 each PO Q48H metFORMIN HCL 1,000 mg PO AC-BID lisinopriL 40 mg PO 1500 Banco 3 (Unknown Dose) 1 tab PO Q48H Multivitamins, Thera [Multivitamin (formulary)] 1 tab PO QAM Krill Oil (Unknown Dose) 1 tab PO Q48H Vitamin D3 (Unknown Dose) 1 tab PO Q48H Rosuvastatin Calcium 40 mg PO 0000 Potassium Chloride [K-Tab ER] 20 meq PO QAM Glucosam/Jose-Msm1/C/Palomo/Bosw [Glucosamine-Chondroitin Tablet] 1 each PO BID Gabapentin 300 mg PO QID Magnesium (Unknown Dose) 1 tab PO DAILY No Action Fenofibrate,Micronized [Fenofibrate] 134 mg PO DAILY Aspirin [Adult Low Dose Aspirin EC] 4 tab PO 1500 Discharge Medication List Aspirin [Adult Low Dose Aspirin EC] 4 tab PO 1500 08/19/23 [History] Furosemide [Lasix] 20 mg PO DAILY PRN 08/19/23 [History] Gabapentin 300 mg PO QID 08/19/23 [History] Glimepiride 4 mg PO 1500 08/19/23 [History] Glucosam/Jose-Msm1/C/Palomo/Bosw [Glucosamine-Chondroitin Tablet] 1 each PO BID 08/19/23 [History] Krill Oil (Unknown Dose) 1 tab PO Q48H 08/19/23 [History] Magnesium (Unknown Dose) 1 tab PO DAILY 08/19/23 [History] Multivitamins, Thera [Multivitamin (formulary)] 1 tab PO QAM 08/19/23 [History] Banco 3 (Unknown Dose) 1 tab PO Q48H 08/19/23 [History] Potassium Chloride [K-Tab ER] 20 meq PO QAM 08/19/23 [History] Rosuvastatin Calcium 40 mg PO 0000 08/19/23 [History] Ubidecarenone [Co Q-10] 400 mg PO DAILY 08/19/23 [History] Vitamin B Complex 1 each PO Q48H 08/19/23 [History] Vitamin D3 (Unknown Dose) 1 tab PO Q48H 08/19/23 [History] amLODIPine 10 mg PO HS 08/19/23 [History] hydrALAZINE HCL 50 mg PO BID 08/19/23 [History] lisinopriL 40 mg PO 1500 08/19/23 [History] metFORMIN HCL 1,000 mg PO AC-BID 08/19/23 [History] Aspirin 325 mg PO BID #60 tab 08/25/23 [Rx] HYDROcodone/APAP 7.5-325MG [[place] 7.5-325] 1 - 2 tab PO Q6H PRN #32 tab 08/25/23 [Rx] Sennosides [Senokot] 2 tab PO DAILY PRN #60 tablet 08/25/23 [Rx] Fenofibrate,Micronized [Fenofibrate] 134 mg PO DAILY 08/26/23 [History] Follow up Appointment(s)/Referral(s): Ivan Arriaga MD [Primary Care Provider] - 1 Week Vladimir Todd DO [Doctor of Osteopathic Medicine] - 09/09/23 2:30 pm (with [facility]) Activity/Diet/Wound Care/Special Instructions: Weightbearing as tolerated with walker. Leave Prevena wound vac in place for 7 days. Please take aspirin 325mg twice daily for 30 days to prevent blood clots. Recommend use of compression stockings daily until follow up to help prevent swelling and blood clots. May remove at night before sleeping. Please follow-up with [facility] in 2 weeks and call with any questions or concerns, . Discharge Disposition: TRANSFER TO SNF/ECF
[2023-08-28 11:12] LABS: Basophils # (A) 0.04 X 10*3/uL (0.00-0.10); Basophils % (A) 0.4 %; Eosinophils # (A) 0.19 X 10*3/uL (0.04-0.35); Eosinophils % (A) 2.1 %; HCT 26.8 % (39.6-50.0); HGB 8.5 g/dL (13.0-17.0); Lymphocytes # (A) 1.52 X 10*3/uL (0.90-5.00); Lymphocytes % (A) 16.7 %; MCH 28.6 pg (27.0-32.0); MCHC 31.7 g/dL (32.0-37.0); MCV 90.2 FL (80.0-97.0); Mean Platelet Volume 10.3 FL (9.5-12.2); Monocytes # (A) 0.82 X 10*3/uL (0.20-1.00); NRBC Per 100 WBC 0 X 10*3/uL (0.00-0.01); Neutrophils # (A) 6.46 X 10*3/uL (1.80-7.70); Neutrophils % (A) 70.8 %; Platelet Count 168 X 10*3/uL (140-440); RBC 2.97 X 10*6/uL (4.40-5.60); RDW 14.9 % (11.5-14.5); WBC 9.12 X 10*3/uL (4.50-10.00)
[2023-08-28 11:14] LABS: Glucose,Whole Blood 182 mg/dL (70-110)
--- NOTE | 2023-08-28 13:11 | P.PN ---
Subjective Progress Note Date: 08/28/23 (Delayed charting seen at 0910) Patient is a 72-year-old male with hypertension, dyslipidemia, diabetes mellitus type 2, leiomyosarcoma status post left upper extremity amputation, and multiple other comorbid conditions who presented for elective right total hip arthroplasty. Patient seen and examined at bedside. He has no complaints currently but is feeling very tired today. We discussed that his sugar levels are doing okay and that he can resume his Amaryl. Vital signs reviewed General: Nontoxic, no distress, appears at stated age, Obese Cardiovascular: S1S2 reg, no murmur, positive posterior tibial pulse bilateral, Lungs: Decreased bs bilateral, no rhonchi, no rales, no accessory muscle use Abdominal: Soft, nontender to palpation, no guarding, no appreciable organomegaly Neuro: CN II-XI grossly intact, no focal neuro deficits Psych: Alert, oriented, appropriate affect Assessment/Plan: 72-year-old male status post right total hip arthroplasty -Ortho note reviewed: Leave Provana wound VAC in place for 7 days, continue anticoagulation. Acute postoperative blood loss anemia, anticipated outcome of surgery - ferrous sulfate 325 mg PO daily for the next 30 days - repeat CBC in 3 days Hypomagnesemia, resolved Hypokalemia, resolved Diabetes Melitus type II, with hyperglycemia - Hemoglobin A1c 6.4%.. - Glimepiride 4 mg daily - metformin 1000 mg twice daily - SSI Hypertension - amlodipine 10 mg nightly, hydralazine 50 mg twice daily, and lisinopril 40 mg daily. Hyperlipidemia -Atorvastatin 80 mg nightly. Neuropathy status post left upper extremity amputation - Neurontin 300 mg 4 times daily. Obstructive sleep apnea -CPAP nightly Class III obesity with BMI 44.4 -Outpatient structured weight loss Imaging: None new Data Review: Labs reviewed from today include CBC remarkable for HgB 8.5, BS 170-180. Thank you for allowing us to participate in the care of this pleasant patient. Do not hesitate to contact us with questions. Someone can be reached from the [facility] hospitalist group all hours of the day at [phone] or via [employer] serve. This dictation was prepared using [employer] voice recognition software. Though every attempt is made to correct errors during dictation some may still exist. Objective - Vital Signs Vital signs: Vital Signs Temp 98.4 F 01/12/24 08:00 Pulse 55 L 08/28/23 08:00 Resp 18 08/28/23 08:00 BP 105/52 08/28/23 08:00 Pulse Ox 95 08/28/23 08:00 FiO2 Intake & Output 08/27/23 08/28/23 08/28/23 18:59 06:59 18:59 Intake Total 400 200 Output Total 300 600 Balance 100 -400 Intake: Oral 400 200 Output: Urine 300 600 Other: Voiding Method Toilet Toilet Toilet # Voids 2 1 1 - Labs CBC & Chem 7: 08/28/23 06:01 08/27/23 06:08 Labs: Abnormal Lab Results - Last 24 Hours (Table) 08/27/23 08/27/23 08/28/23 Range/Units 16:50 20:33 06:01 RBC 2.97 L (4.40-5.60) X 10*6/uL Hgb 8.5 L (13.0-17.0) g/dL Hct 26.8 L (39.6-50.0) % MCHC 31.7 L (32.0-37.0) g/dL RDW 14.9 H (11.5-14.5) % Immature Gran # 0.09 H (0.00-0.04) X 10*3/uL POC Glucose (mg/dL) 177 H 165 H (70-110) mg/dL 08/28/23 08/28/23 Range/Units 06:21 11:13 RBC (4.40-5.60) X 10*6/uL Hgb (13.0-17.0) g/dL Hct (39.6-50.0) % MCHC (32.0-37.0) g/dL RDW (11.5-14.5) % Immature Gran # (0.00-0.04) X 10*3/uL POC Glucose (mg/dL) 174 H 182 H (70-110) mg/dL
[2023-08-28] MEDS: FERROUS SULFATE 325 MG TAB PO SCH (13:32)
[2023-08-28] MEDS ORDERED: GLIMEPIRIDE 4 MG TAB PO SCH (15:00)
[2023-08-28 15:06] VITALS: BP 129/62; PULSE 60; RESP 17
[2023-08-28] MEDS: lisinopriL 20 MG TAB PO SCH (16:50)
== END 2023-08-28 16:07 | DRG 470 ==
LOC: OR 05:34 → 4SSUR 09:20
PROVIDERS: ADMIT Orthopaedic Surgery; ATTEND Orthopaedic Surgery
PROC: 0SR906A Replacement of Right Hip Joint with Oxidized Zirconium on Polyethylene Synthetic Substitute, Uncemented, Open Approach (ICD-10-PCS; principal; 2023-08-25 07:00)
DX: M16.11 Unilateral primary osteoarthritis, right hip (principal); D62 Acute posthemorrhagic anemia; Z68.41 Body mass index [BMI] 40.0-44.9, adult; E11.65 Type 2 diabetes mellitus with hyperglycemia; E66.01 Morbid (severe) obesity due to excess calories; E78.5 Hyperlipidemia, unspecified; E87.6 Hypokalemia; M17.0 Bilateral primary osteoarthritis of knee; K21.9 Gastro-esophageal reflux disease without esophagitis; G47.33 Obstructive sleep apnea (adult) (pediatric); I10 Essential (primary) hypertension; E11.42 Type 2 diabetes mellitus with diabetic polyneuropathy; Z79.84 Long term (current) use of oral hypoglycemic drugs; E83.42 Hypomagnesemia; H91.93 Unspecified hearing loss, bilateral; Z97.4 Presence of external hearing-aid; Z79.899 Other long term (current) drug therapy; Z87.891 Personal history of nicotine dependence; Z79.82 Long term (current) use of aspirin; Z89.202 Acquired absence of left upper limb, unspecified level; Z85.89 Personal history of malignant neoplasm of other organs and systems; Z88.0 Allergy status to penicillin
CPT/HCPCS: 73501; 73502; 80048; 80053; 83036; 83735; 85025; 85027; 86850; 86900; 86901; 94660